=== PATIENT | female | born 1965 | race Caucasian/White ===

== ENCOUNTER 2021-02-15 21:04 | Emergency (ER) | payer SELFPAY ==
[~2021-02-15] VITALS: Ht 144.8 cm; Wt 56.7 kg
[2021-02-15] MEDS ORDERED: METHYLPREDNISOLONE SOD SUCC 125 MG/2ML VIAL IM ONE (21:15)
== END 2021-02-15 22:20 | disposition home or self-care (01) ==
LOC: ER 21:09
DX: T78.40XA Allergy, unspecified, initial encounter (principal); L50.0 Allergic urticaria
CPT/HCPCS: 99282; J2930